=== PATIENT | male | born 1930 | race Caucasian/White ===

== ENCOUNTER 2016-12-27 09:24 | Observation (INO) ==
[2016-12-27] MEDS ORDERED: Acetaminophen 325 MG TABLET PO PRN (11:05)
[2016-12-27] MEDS ORDERED: Naloxone 0.4 MG/ML INJ IVP PRN (11:05)
[2016-12-27] MEDS ORDERED: Lidocaine -MPF 2% 5 ML VIAL INFILT ONE (11:24)
--- NOTE | 2016-12-27 12:11 | Internal Med History&Physical ---
Date of Encounter: 12/27/16 Time of Encounter: 11:30 Assessment and Plan (1) Syncope due to orthostatic hypotension Current visit: Yes Status: Acute Patient with syncopal episode and fall. Most likely due to orthostatic hypotension. Will monitor blood pressure closely. Hold antihypertensives for now. Check orthostatic blood pressure. Also check carotid Dopplers and 2-D echocardiogram. Place patient on telemetry. (2) Atrial fibrillation Current visit: Yes Status: Chronic Rate control. Patient is not on anticoagulation but is on aspirin and Plavix. Qualifiers: Atrial fibrillation type: paroxysmal Qualified Code(s): I48.0 - Paroxysmal atrial fibrillation (3) Hyperlipidemia Current visit: Yes Status: Chronic Continue statin. Qualifiers: Hyperlipidemia type: mixed hyperlipidemia Qualified Code(s): E78.2 - Mixed hyperlipidemia (4) Diabetes mellitus Current visit: Yes Status: Chronic Blood sugar is 132. Monitor blood sugars. Sliding scale insulin and diabetic diet. Qualifiers: Diabetes mellitus type: type 2 Diabetes mellitus complication status: with kidney complications Diabetes mellitus complication detail: with chronic kidney disease Diabetes mellitus senior living insulin use: with senior living use Chronic kidney disease stage: stage 3 (moderate) Qualified Code(s): E11.22 - Type 2 diabetes mellitus with diabetic chronic kidney disease; N18.3 - Chronic kidney disease, stage 3 (moderate); Z79.4 - terminal gauger (current) use of insulin (5) Essential hypertension Current visit: Yes Status: Chronic Patient having episodes of hypotension. We will monitor blood pressure. Hold antihypertensives for now. May resume at a lower dose if blood pressure remains good. (6) Congestive heart failure Current visit: Yes Status: Chronic Patient most likely has systolic congestive heart failure. Will get 2-D echocardiogram. Follows up with cardiology as outpatient in [place]. On Lasix 40 mg twice daily and spironolactone. Continue these meds. Received IV lasix in ED. Will hold off on further IV dosages for now due to orthostasis. Qualifiers: Congestive heart failure type: systolic Congestive heart failure chronicity : chronic Qualified Code(s): I50.22 - Chronic systolic (congestive) heart failure Internal Medicine - H&P: HPI Chief complaint: Syncopal episode and fall Admitted From: Emergency Dept Plans for Post Hospital Care: Home History of present illness: Mr. Hernandez is a 86 year old male patient with a history of congestive heart failure, coronary artery disease, diabetes mellitus type 2, hypertension and hyperlipidemia presented to the ER after an episode of syncope and loss of consciousness. He does not recollect the exact timing of the events but he went to bed last night and then he must have gotten up at night to use the bathroom. He remembers himself waking up on the floor with bleeding noted from an injury on his left foot. He was then brought to the ER . He has been having low blood pressure at home especially when he wakes up in the morning. Blood pressure has been running in the 60s and 70s systolic. 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 He does have some dizziness and lightheadedness when standing up. Does get occasional palpitations. Denies any chest pain. No fever or chills or night sweats. No nausea or vomiting. He does make good amount of urine . He denies any headache or blurred vision. No focal weakness or numbness. He says he had a stroke several years back and may have had seizures immediately following that but he has not had any episodes since then. Past Med Surg Social Fam HX - Past Medical History Medical history: coronary artery disease, CVA, diabetes, GERD, hyperlipidemia, hypertension, myocardial infarction Psychiatric history: no psych history - Social History Smoking Status: Former smoker Smokeless Tobacco Status: No Alcohol use: none Drug use: none - Additional Family History Additional family history: Reviewed and found to be noncontributory at this time Internal Medicine - H&P: Meds Aspirin [Lo-Dose Aspirin EC] 81 mg PO DAILY 12/07/16 [History] Cholecalciferol (Vitamin D3) [Vitamin D] 800 unit PO DAILY 12/07/16 [History] Clopidogrel Bisulfate [Plavix] 75 mg PO DAILY 12/07/16 [History] Furosemide [Lasix] 40 mg PO BID 12/07/16 [History] Insulin ASPART [NovoLOG] 12 units SQ BID 12/07/16 [History] Insulin NPH Hum/Reg Insulin Hm [Novolin 70-30 100 Unit/ml Vial] 22 unit SQ BID 12/07/16 [History] Metoprolol Tartrate [Lopressor] 25 mg PO BID 12/07/16 [History] Potassium Chloride [Klor-Con 10] 1 tab PO DAILY 12/07/16 [History] Pravastatin Sodium [Pravachol] 40 mg PO DAILY 12/07/16 [History] Ranitidine HCl [Zantac] 150 mg PO BID 12/07/16 [History] Spironolactone [Aldactone] 25 mg PO DAILY 12/07/16 [History] Tamsulosin [Flomax] 0.4 mg PO DAILY 12/07/16 [History] Terazosin [Hytrin] 1 mg PO DAILY 12/07/16 [History] Allergies No Known Allergies Allergy (Verified 12/27/16 07:08) All Systems PM: A 10-system review of systems was performed and is negative for pertinent findings except as documented above in the HPI. - Constitutional Constitutional: falls, no chills, no fever(s), no night sweats - EENT Eyes: no change in vision, no discharge, no pain, no photophobia Ears: no ear discharge, no ear pain, no tinnitus Nose, mouth and throat: no dysphagia, no nasal discharge, no neck pain, no sore throat - Cardiovascular Cardiovascular ROS IM: lightheadedness, no chest pain, no diaphoresis, no dyspnea, no palpitations, no syncope - Respiratory Respiratory: no cough, no dyspnea, no wheezing, no excessive phlegm production - Gastrointestinal Gastrointestinal: no abdominal pain, no diarrhea, no hematemesis, no hematochezia, no melena, no nausea, no vomiting - Musculoskeletal Musculoskeletal ROS IM: no numbness, no tingling - Integumentary Integumentary IM: no rash, no unusual bruising - Neurological Neurological ROS: no confusion, no convulsions, no focal weakness, no numbness, no tingling, no tremor(s) - Hematologic/Lymphatic Hematologic/Lymphatic: no easy bruising - Constitutional Vitals: Temp Pulse Resp BP Pulse Ox 98.1 F 93 16 111/54 90 L 12/27/16 11:19 12/27/16 11:19 12/27/16 11:19 12/27/16 11:19 12/27/16 11:19 General appearance: Present: cooperative, mild distress, A&O X 3, answers questions appropriately - Eye Eye exam: Present: EOMI, PERRL, conjuntiva pink, sclera anicteric - Neck Neck exam general surgery: Present: supple, trachea midline. Absent: lymphadenopathy - Respiratory Respiratory exam: Present: CTAB. Absent: accessory muscle use, rales, rhonchi, wheezes - Cardiovascular Cardiovascular exam: Present: RRR, +S1, +S2. Absent: diastolic murmur, gallop, rubs, systolic murmur - GI/Abdominal GI/Abdominal exam: Present: normal bowel sounds, soft, no peritoneal signs. Absent: distended, tenderness - Extremities Exam Extremities exam: Present: warm, radial pulses palpable and symetrical. Absent : calf tenderness, cyanotic, pedal edema Additional comments: Laceration were noted in the left plantar surface over the first metatarsal phalangeal joint. This has been sutured with his bleeding at the medial edge - Neurological Exam Neurological exam: Present: alert, CN II-XII intact, oriented X3, no focal deficits, strengths equal and symetr throughout. Absent: facial droop, speech deficit - Skin Skin exam: Present: dry, intact Internal Med - H&P Results - Labs Labs: Hemoglobin 11.5, WBC 6.1, platelets 151, BUN 37, creatinine 1.48 - Impressions Chest x-ray shows mild pulmonary edema. CT of the head does not show any acute stroke or bleed - Attending Attestation This document has been at least partially created by [employer] voice recognition technology by Dr. Shea. Errors in grammar, wording or other phrases may exist. If errors are found after the documentation is signed, they will be addressed individually in the addendum section of this document when appropriate.
[2016-12-27] MEDS ORDERED: Dextrose Gel 15 GM PO PRN ×2 (12:30)
[2016-12-27] MEDS ORDERED: *HR* Dextrose 50 % in Water (Syg) 50 ML SYRINGE IVP PRN (12:30)
[2016-12-27] MEDS ORDERED: D5% in Water 1,000 ML IV PRN (12:30)
[2016-12-27] MEDS: Insulin LISPRO 300 UNITS/3 ML VIAL SQ SCH ×2 (17:06→21:01)
[2016-12-27] MEDS: *HR* Heparin 5,000 UNIT/ML VIAL SQ SCH (17:07)
--- NOTE | 2016-12-27 18:00 | Procedure Note ---
Date of procedure: 12/27/16 Pre-op diagnosis: Left hallux laceration Post-op diagnosis: same Procedure: Mr. Hernandez arrived to general medical floor by EMS. He recently had sutures placed at the base of his left hallux. He had continued bleeding upon presentation to the general medical floor from the base of the laceration. Complicating factor includes patient taking Aspirin and Plavix. Upon evaluation it was determined he would benefit from a suture placed at the base of the laceration as it was not completely closed. Procedure: Suture of laceration Procedure performed by: Elvin Gonzales DO Suture: 4.0 Ethalon Anaesthetic: 1.5ml 2% lidocaine- local injection Verbal consent obtained prior to laceration suture. Mr. Hernandez was identified verbally and by name band confirming name, date of and procedure. The site was cleaned with topical chloro-prep, the foot was draped and sterile technique was used throughout this procedure. 1.5ml was injected into the site of the laceration. Using 4.0 Ethalon suture a single figure 8 suture was placed at the base of the laceration closing the gap. there was resolution of bleeding after the suture was placed. Post procedure the site was cleaned and covered. Anesthesia: local (2% lidocaine 1.5ml) Surgeon: Elvin Gonzales Estimated blood loss (cc): 0 IV fluids (cc): 0 Urine output (cc): 0 Pathology: none sent Condition: stable Disposition: floor
[2016-12-27] MEDS: Famotidine 20 MG TABLET PO SCH (21:02)
[2016-12-28 04:54] LABS: Basophils % 0.7 %; Eosinophils # 0.2 K/mcL (0.0-0.6); Eosinophils % 3.5 %; Hematocrit 35.4 % (37.5-50.1); Hemoglobin 11.1 g/dL (12.9-16.9); Immature Granulocytes % 0.4 % (0-4); Lymphocytes # 1.1 K/mcL (0.6-4.6); Lymphocytes % 19.7 %; Mean Corpuscular HGB Conc 31.4 g/dL (31.6-35.5); Mean Corpuscular Hemoglobin 28.8 pg (28.0-33.3); Mean Corpuscular Volume 91.9 fL (83.0-100.0); Mean Platelet Volume 10.4 fL (9.4-12.4); Monocytes # 0.8 K/mcL (0.0-1.3); Monocytes % 15.5 %; Neutrophils # 3.3 K/mcL (1.6-8.9); Platelet Count 155 K/mcL (140-400); Red Blood Count 3.85 M/mcL (4.19-5.50); Red Cell Distribution Width 15.7 % (11.5-14.5); Segmented Neutrophils % 60.2 %
[2016-12-28 05:14] LABS: Calcium 8.5 mg/dL (8.6-10.8); Potassium 4.1 mEq/L (3.5-4.5)
[2016-12-28] MEDS: *HR* Heparin 5,000 UNIT/ML VIAL SQ SCH ×2 (05:55→17:03)
[2016-12-28] MEDS ORDERED: Perflutren Lipid Microsphere 1.3 ML in 0.9 % Sodium Chloride 8.7 ML IVP ONE (07:49)
[2016-12-28] MEDS: Famotidine 20 MG TABLET PO SCH (08:59)
[2016-12-28] MEDS: Aspirin Enteric Coated 81 MG Tablet PO SCH (08:59)
[2016-12-28] MEDS: Furosemide 40 MG TABLET PO SCH ×2 (08:59→17:03)
[2016-12-28] MEDS: Spironolactone 25 MG TABLET PO SCH (08:59)
[2016-12-28] MEDS: Insulin LISPRO 300 UNITS/3 ML VIAL SQ SCH ×4 (09:01→20:40)
--- NOTE | 2016-12-28 10:26 | ECHO - Doppler Report ---
Echo with Imaging Enhancement Agent Name: Uziel Hernandez Date of Study: 12/28/2016 Date: 1930 Ht: 68.0 in Medical Record#: [id number] Age: 86 Wt: 203.0 lb Gender: Male BSA: 2.06 Order #: [id number] Location: [facility] Room #: 2A62 Reading Physician: Vidhi Barrientos DO Assistant Professor Of Music: Kathe Nuñez Ordering Physician: Dain Shea MD Primary Physician: Gregorio Shultz MD Indications: Syncope, Pulmonary edema Impressions: LVEF 20%. Left ventricle is moderately dilated. Definity was given. There is no evidence of left ventricular thrombus. Indeterminate left venticular diastoic function RV is not well evaluated. Mild mitral regurgitation. Mild tricuspid regurgitation. Mild pulmonic regurgitation. Mild pulmonary hypertension. Left Ventricular Wall Motion: Rest Echo Findings The apex, apical inferior, apical anterior, mid anterior, basal anterior, apical septal, mid inferior septal, basal inferior septal, apical lateral, mid anterior lateral and basal anterior lateral martinez were hypokinetic. The mid inferior, basal inferior, mid anterior septal, mid inferior lateral, basal anterior septal and basal inferior lateral martinez were not visualized. Findings: Study Quality * Technically sub-optimal due to clinical status. ECG Findings * Paced rhythm. Left Ventricle * Indeterminate diastolic function. * Definity echo contrast was used. * There is no LV thrombus. * LVEF 20%. * Moderately dilated left ventricle. Left Atrium * Mildly dilated left atrium. Mitral Valve * Mild mitral regurgitation. * Mildly calcified mitral valve leaflets. * No mitral stenosis. Aortic Valve * No aortic regurgitation. * Trileaflet aortic valve. * Normal aortic valve structure. * No aortic stenosis. Tricuspid Valve * Tricuspid valve not well visualized. * Mild tricuspid regurgitation. * Estimated RA pressure is 3 mmHg. * Estimated RVSP is 38 mmHg. * Mild pulmonary hypertension. Pulmonic Valve * Pulmonic valve is not well visualized. * No pulmonic stenosis. * Mild pulmonic regurgitation. Pulmonary Artery * Pulmonary artery not well visualized. Right Atrium * Normal right atrial size. Right Ventricle * RV is not well evaluated. Pericardium * There is no pericardial effusion present. Interatrial Septum * Interatrial septum not well evaluated. Device lead * A device lead was visualized in the right atrium and right ventricle. IVC * Normal IVC dimensions and inspiratory collapse. Aorta * Suboptimally visualized. History Hypertension Diabetes Family History of CAD Myocardial Infarction Coronary Artery Bypass Graft Pacer/ICD Implant Contrast: Definity 1.3 ml in 8.7 ml of saline 2 ml. Measurements: BP: 118/ 69 2D Normal Values LVIDd: 6.60 cm 3.7 - 5.6 cm LVIDs: 4.80 cm 1.5 - 3.6 cm AO: 2.50 cm < 4.0 cm %FS: 14.30 cm >25 % LA volume: Mitral Valve Peak E:1.00 m/sec Peak E' Lat Misael:12.1 cm/s Peak E' Med Misael:8.09 cm/s E/E' Lat Ratio:8.2 E/E' Med Ratio:12.3 Tricuspid Valve TV Regurg Peak Grad: 35.00mmHg TV Regurg Peak Misale: 2.96m/sec Updated by Vidhi Barrientos on 12/28/2016 10:19:59 AM electronically signed on 12/28/2016 10:20:30 AM with status of Final Wall Motion Jordan: 1=Normal, 2=Hypokinesis, 3=Akinesis, 4=Dyskinesis, 5=Aneurysmal, 6=Hyperkinetic, X=Not Visualized (Blank)=Missing
--- NOTE | 2016-12-28 10:55 | Internal Med Progress Note ---
Date of Encounter: 12/28/16 Time of Encounter: 10:30 - Assessment and plan (1) Syncope due to orthostatic hypotension Current Visit: Yes Status: Acute Assessment and plan: Possibly from multiple medications and diuretics from CHF Patient reports recurrent falls in the past. PT/OT consult placed ECHO shows EF 20%, moderately dilated LV, NO LV thrombus, indeterminate LV diastolic function, RV not well visualized Mild MR< multiple wall motion abnormalities Head CT negative for any acute processes Adynamic troponin elevation, stable Carotid doppler with non-stenotic plaques Patient has been restarted on his home medications and his BP seems to be tolerating it He has Pulm edema on CXR but his chest is clear and he has no other signs of fluid overload, will not give any extra doses of lasix at this time Await PT/OT eval Continue telemetry Continue home meds except Terazosin and Tamsulosin (2) Atrial fibrillation Current Visit: Yes Status: Chronic Assessment and plan: Not on AC, continue BB, Plavix, ASA Due to age and recurrent falls, not a good candidate for anticoagulation 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 Qualifiers: Atrial fibrillation type: paroxysmal Qualified Code(s): I48.0 - Paroxysmal atrial fibrillation (3) Hyperlipidemia Current Visit: Yes Status: Chronic Assessment and plan: Chronic, stable Qualifiers: Hyperlipidemia type: mixed hyperlipidemia Qualified Code(s): E78.2 - Mixed hyperlipidemia (4) Diabetes mellitus Current Visit: Yes Status: Chronic Assessment and plan: FS acceptable Qualifiers: Diabetes mellitus type: type 2 Diabetes mellitus complication status: with kidney complications Diabetes mellitus complication detail: with chronic kidney disease Diabetes mellitus ferry terminal agent insulin use: with nursing home use Chronic kidney disease stage: stage 3 (moderate) Qualified Code(s): E11.22 - Type 2 diabetes mellitus with diabetic chronic kidney disease; N18.3 - Chronic kidney disease, stage 3 (moderate); Z79.4 - ferry terminal agent (current) use of insulin (5) Essential hypertension Current Visit: Yes Status: Chronic Assessment and plan: Controlled on current meds, continue same Will need medication reconciliation at discharge (6) Congestive heart failure Current Visit: Yes Status: Chronic Assessment and plan: EF 20% On Lasix, BB, Spironolactone, at home, no ACEI per home med chart Continue current meds Qualifiers: Congestive heart failure type: systolic Congestive heart failure chronicity : chronic Qualified Code(s): I50.22 - Chronic systolic (congestive) heart failure - Subjective Interval history: 86 year old male patient with a history of congestive heart failure, coronary artery disease, diabetes mellitus type 2, hypertension and hyperlipidemia He is on admission for management of Syncope with fall, secondary to orthostatic hypotension He also sustained a Left big toe laceration on the plantar surface He is seen at bedside with family Denies new complains. Patient reports he has been "okay, but his reports patient has had recurrent falls especially lately. - Constitutional Vitals: Temp Pulse Resp BP Pulse Ox 97.3 F L 102 18 123/69 95 12/28/16 09:10 12/28/16 09:10 12/28/16 09:10 12/28/16 09:10 12/28/16 09:10 General appearance: Present: cooperative, A&O X 3, no acute distress, answers questions appropriately - Head Head exam: Present: atraumatic, normocephalic - Eye Eye exam: Present: PERRL, conjuntiva pink, sclera anicteric Pupils: Present: PERRL - Neck Neck exam general surgery: Present: supple, trachea midline. Absent: lymphadenopathy - Respiratory Respiratory exam: Present: CTAB. Absent: rales, rhonchi, wheezes, tachypnea - Cardiovascular Cardiovascular exam: Present: irregular rhythm, +S1, +S2. Absent: diastolic murmur, gallop, JVD, rubs, systolic murmur - GI/Abdominal GI/Abdominal exam: Present: normal bowel sounds, soft, no peritoneal signs. Absent: distended, tenderness - Extremities Exam Extremities exam: Present: warm, radial pulses palpable and symetrical. Absent : calf tenderness, cyanotic, pedal edema Additional comments: Wound dressing to L toe removed, sutures intact, no active bleeding - Neurological Exam Neurological exam: Present: alert, CN II-XII intact, oriented X3, no focal deficits. Absent: pronater drift, facial droop, speech deficit - Skin Skin exam: Present: dry, intact Internal Medicine: Result - Labs CBC & Chem 7: 12/28/16 04:35 12/28/16 04:35 Labs: Short CBC 12/28/16 Range/Units 04:35 WBC 5.4 (4.3-11.1) K/mcL Hgb 11.1 L (12.9-16.9) g/dL Hct 35.4 L (37.5-50.1) % Plt Count 155 (140-400) K/mcL Neutrophils # 3.3 (1.6-8.9) K/mcL BMP 12/28/16 04:35 Sodium 138 Potassium 4.1 Chloride 100 Carbon Dioxide 28 BUN 31 H Creatinine 1.43 H Glucose 110 H Calcium 8.5 L Cardiac Enzymes 12/27/16 12/27/16 12/28/16 Range/Units 13:16 18:18 04:35 Troponin I 0.05 H* 0.06 H* 0.06 H* (0-0.03) ng/mL Consult Discharge Plan - Plan Referrals: Gregorio Shultz MD [Primary Care Provider] - 01/01/17 9:30 am ()
[2016-12-29] MEDS: *HR* Heparin 5,000 UNIT/ML VIAL SQ SCH (06:45)
[2016-12-29] MEDS: Spironolactone 25 MG TABLET PO SCH (08:14)
[2016-12-29] MEDS: Aspirin Enteric Coated 81 MG Tablet PO SCH (08:14)
[2016-12-29] MEDS: Furosemide 40 MG TABLET PO SCH (08:14)
[2016-12-29] MEDS: Famotidine 20 MG TABLET PO SCH (08:14)
[2016-12-29] MEDS: Insulin LISPRO 300 UNITS/3 ML VIAL SQ SCH ×2 (08:15→12:11)
--- NOTE | 2016-12-29 12:39 | Carotid Imaging Report ---
Carotid Duplex Patient Name:Uziel Hernandez Order Number:[id number] Procedure Date:12/28/2016 Date:1930ge:86 yrs Gender:Male Location:[facility] Room #: 2A62 Warehouse Delivery Driver:Kathe Nuñez Referring MD:Dain Shea MD district wildlife manager:Gregorio Shultz MD Reading MD:Antonio Florence MD Risk Factors Yes/No Hypertension Yes Diabetes Yes Hx of TIA Yes Impressions: The bilateral carotid arteries have minimal plaque throughout. Recommendations: After imaging the patient returned to their room. Findings Carotid Duplex: Right: The right proximal common carotid artery has a PSV of 121 cm/s and a EDV of 25 cm/s. The right mid common carotid artery has a PSV of 118 cm/s and a EDV of 20 cm/s. There is nonstenotic plaque in the right distal common carotid artery with a PSV of 109 cm/s and a EDV of 25 cm/s. There is smooth heterogeneous plaque. There is nonstenotic plaque in the right bifurcation with a PSV of 49 cm/s and a EDV of 14 cm/s. There is smooth heterogeneous plaque. The right proximal internal carotid artery has a PSV of 59 cm/s and a EDV of 17 cm/s. There is nonstenotic plaque in the right mid internal carotid artery with a PSV of 91 cm/s and a EDV of 27 cm/s. There is smooth heterogeneous plaque. The right distal internal carotid artery has a PSV of 90 cm/s and a EDV of 24 cm/s. There is nonstenotic plaque in the right eca with a PSV of 101 cm/s and a EDV of 13 cm/s. There is smooth heterogeneous plaque. The right vertebral artery has a PSV of 54 cm/s and a EDV of 12 cm/s. Left: There is nonstenotic plaque in the left proximal common carotid artery with a PSV of 104 cm/s and a EDV of 18 cm/s. There is smooth heterogeneous plaque. There is nonstenotic plaque in the left mid common carotid artery with a PSV of 92 cm/s and a EDV of 20 cm/s. There is smooth heterogeneous plaque. There is nonstenotic plaque in the left distal common carotid artery with a PSV of 80 cm/s and a EDV of 17 cm/s. There is smooth heterogeneous plaque. There is nonstenotic plaque in the left bifurcation with a PSV of 100 cm/s and a EDV of 17 cm/s. There is smooth heterogeneous plaque. The left proximal internal carotid artery has a PSV of 89 cm/s and a EDV of 23 cm/s. The left mid internal carotid artery has a PSV of 97 cm/s and a EDV of 30 cm/s. The left distal internal carotid artery has a PSV of 77 cm/s and a EDV of 23 cm/s. The left eca has a PSV of 103 cm/s and a EDV of 16 cm/s. The left vertebral artery has a PSV of 50 cm/s and a EDV of 13 cm/s. Carotid Results Right PSV EDV Assessment Proximal CCA 121 25 Mid CCA 118 20 Distal CCA 109 25 Bifurcation 49 14 Proximal ICA 59 17 Mid ICA 91 27 Distal ICA 90 24 ECA 101 13 Vertebral Artery 54 12 Left PSV EDV Assessment Proximal CCA 104 18 Mid CCA 92 20 Distal CCA 80 17 Bifurcation 100 17 Proximal ICA 89 23 Mid ICA 97 30 Distal ICA 77 23 ECA 103 16 Vertebral Artery 50 13 Ratio's Right ICA/CCA Ratio: 0.80 ICA/CCA Values: 91/118 Left ICA/CCA Ratio: 1.10 ICA/CCA Values: 97/92 Updated by Antonio Florence MD on 12/29/2016 12:33:39 PM electronically signed on 12/29/2016 12:33:55 PM with status of Final
[2016-12-29 14:24] VITALS: BP 107/65
--- NOTE | 2016-12-29 15:08 | Discharge Summary ---
Date of Encounter: 12/29/16 Time of Encounter: 15:05 - Discharge Diagnosis (1) Diabetes mellitus Priority: Secondary Status: Chronic Qualifiers: Diabetes mellitus type: type 2 Diabetes mellitus complication status: with kidney complications Diabetes mellitus complication detail: with chronic kidney disease Diabetes mellitus director long term care insulin use: with fpc use Chronic kidney disease stage: stage 3 (moderate) Qualified Code(s): E11.22 - Type 2 diabetes mellitus with diabetic chronic kidney disease; N18.3 - Chronic kidney disease, stage 3 (moderate); Z79.4 - emt intermediate (current) use of insulin (2) Essential hypertension Priority: Primary Status: Chronic (3) Syncope due to orthostatic hypotension Priority: Primary Status: Acute - Discharge Medications Home Medications: Aspirin [Lo-Dose Aspirin EC] 81 mg PO DAILY 12/07/16 [History] Cholecalciferol (Vitamin D3) [Vitamin D3] 800 unit PO DAILY 12/07/16 [History] Clopidogrel Bisulfate [Plavix] 75 mg PO DAILY 12/07/16 [History] Furosemide [Lasix] 40 mg PO DAILY 12/07/16 [History] Insulin ASPART [NovoLOG] 10 units SQ BID 12/07/16 [History] Insulin NPH Hum/Reg Insulin Hm [Novolin 70-30 100 Unit/ml Vial] 22 unit SQ BID 12/07/16 [History] Metoprolol Tartrate [Lopressor] 25 mg PO BID 12/07/16 [History] Potassium Chloride [Klor-Con 10] 10 meq PO DAILY 12/07/16 [History] Pravastatin Sodium [Pravachol] 40 mg PO BID 12/07/16 [History] Ranitidine HCl [Zantac] 150 mg PO BID 12/07/16 [History] Spironolactone [Aldactone] 25 mg PO DAILY 12/07/16 [History] Tamsulosin HCl [Flomax] 0.4 mg PO DAILY 12/27/16 [History] Allergies/Adverse Reactions: Allergies No Known Allergies Allergy (Verified 12/27/16 07:08) Procedures/tests Complete & Pending: Procedures Performed prior 72 hours Category Date Time Status EV carotid duplex imaging BI Routine Y 12/28/16 11:07 Completed EV echocardiogram w enhance Routine Y 12/28/16 11:07 Completed Date of admission: 12/27/16 10:41 Primary care physician: Gregorio Shultz MD Consults: 12/28/16 12:25 Consult to Occupational Therapy [CONS] Routine Comment: Evaluate, develop and implement POC Consult to Physical Therapy [CONS] Routine Comment: Evaluate, develop and implement POC - Patient Status Disposition: Home, Self-Care Condition: Fair Functional capacity at discharge: independent ambulation Overall status at discharge: patient is back to baseline - Discharge Instructions Instructions: Hypotension (DC) Follow Up With: Gregorio Shultz MD [Primary Care Provider] - 01/01/17 9:30 am () Additional Instructions: #1 discontinue his Hytrin (terazosin) 2. be careful and take his time moving. - Diet and Activity Activity: other (Ambulate with the use of his cane as tolerated) Diet: diabetic diet, low fat, low cholesterol, low salt diet Hospital course: Mr. Hernandez is a 86 year old male presented to the emergency room with an episode of syncope at home. He went to bed that evening. And at some point overnight he woke up on the bed leaning from a laceration to his foot. He denied any chest pain or shortness of breath that he does state he gets some dizziness and lightheadedness when he stood up. He was found to have some orthostatic changes. He had some blood pressures were in the 70s systolically. We discontinued his terazosin. We discontinued his Flomax overnight as well. 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 He was also found have some heart failure on chest x-ray. His Lasix dose was increased to twice a day while he was here. We were holding his Hytrin and his blood pressure and his orthostatic changes seem to settle down. He was able to ambulate around the room and into the hendrix and around the nursing station without any issues and he uses cane for this entire walk. He states he is feeling better he does not feel dizzy when he gets up any longer. We will discontinue his Hytrin. We will continue him on his Flomax because of fear for do not continue him on that he will have troubles urinating shortly. I have advised him to follow up with his primary care provider within a week or so. 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 Echocardiogram showed a left ventricular ejection fraction of 20% with a mildly dilated left ventricle. There is no ventricular thrombus. And there is indeterminate left ventricular diastolic function - Time Spent with Patient Total time spent providing and/or coordinating discharge services: - Constitutional Vitals: Temp Pulse Resp BP Pulse Ox 97.9 F 77 17 107/65 95 12/29/16 11:30 12/29/16 13:38 12/29/16 11:30 12/29/16 13:38 12/29/16 11:30 General appearance: Present: cooperative, A&O X 3, no acute distress, answers questions appropriately - Cardiovascular Cardiovascular exam: Present: RRR, +S1, +S2 - Expanded Cardiovascular Exam Peripheral pulses: 2+: Carotid (L) PM (no bruits), Carotid (R) PM (no bruits), Radial (L), Radial (R)
== END 2016-12-29 15:50 | disposition home or self-care (01) ==
LOC: 2ANU → SUATTDRO 10:41
PROVIDERS: ADMIT Internal Medicine; ATTEND Internal Medicine